=== PATIENT | female | born 1970 | race Caucasian/White ===

== ENCOUNTER 2018-12-28 22:14 | Emergency (ER) | payer MEDICAID ==
[~2018-12-28] VITALS: Ht 139.7 cm; Wt 85.0 kg
[~2018-12-28 22:14] MED LIST: IBUP-1542 PO
[2018-12-28 22:28] VITALS: BP 145/86; PULSE 91; RESP 20; Ht 139.7 cm; Wt 85.0 kg
[2018-12-28] MEDS ORDERED: IBUPROFEN 600 MG TAB PO ONE (23:00)
--- NOTE | 2018-12-28 23:22 | ERD ---
ER Documentation Chief Complaint Chief Complaint right breast pain since last night, green discharge x 1 episode. no fevers. HPI 48-year-old female presenting with right breast pain since yesterday in the midportion of her right breast, with associated minimal yellowish discharge from the nipple. She noticed this in the shower yesterday and today when she tried to express it from the breast. She denies any associated fevers or chills. Her last mammogram was over 10 years ago and was normal. Currently she is denying much pain in her breast. She states that it is a aching pain, 3 out of 10, nonradiating, in the middle right of her chest. No alleviating or exacerbating factors. The pain is constant. ROS All systems reviewed and are negative except as per history of present illness. Allergies Allergies: Coded Allergies: No Known Allergy (Unverified , 12/28/18) PMhx/Soc Medical and Surgical Hx: pt denies Medical Hx, pt denies Surgical Hx Hx Alcohol Use: No Hx Substance Use: No Hx Tobacco Use: No FmHx No history of cancer or any other serious medical problems Physical Exam Vitals Vital Signs Date Temp Pulse Resp B/P (MAP) Pulse Ox O2 O2 Flow FiO2 Time Delivery Rate 12/28/18 98.7 91 20 145/86 100 22:28 (105) Physical Exam Const: No acute distress Neck: No swelling, trachea midline Breast: Bilateral breast implants noted. No palpable masses bilaterally. Left breast with no liquid expressed from the nipple. On the right side, able to express minimal amount of yellowish discharge. No skin changes bilaterally. No axillary lymphadenopathy Resp: Clear to auscultation bilaterally Cardio: Regular rate and rhythm, no murmurs Abd: Soft, non tender, non distended. Skin: No petechiae or rashes Psych: Normal Mood and Affect Results 24 hrs Current Medications Medications Dose Sig/Alvaro Start Time Status Last (Trade) Ordered Route PRN Stop Time Admin Dose Reason Admin Ibuprofen 600 mg ONCE ONCE 12/28/18 DC (Motrin) PO 23:00 12/28/18 23:01 Procedures/MDM Patient is presenting with mild right breast pain with yellowish discharge from the right nipple. She is afebrile and hemodynamically stable. There are no oth er signs of infection on exam. I have a high suspicion for breast malignancy. I have explained this to the patient with the help of a centerless grinder operator. No further work-up can be done in the ER, which I explained to the patient, but she needs to see her primary care doctor as soon as possible to get a referral for mammogram. Patient states that she has an appointment scheduled for a complete physical exam in 2 days and she will discuss this with her doctor. All questions answered. Patient discharged in stable condition. Patient's blood pressure was elevated (>120/80) but appears stable without evidence of hypertension emergency or urgency. The patient was counseled about the risks of hypertension and urged to pursue outpatient monitoring and therapy within a week with their primary care physician. Departure Diagnosis: Primary Impression: Breast pain Additional Impression: Purulent nipple discharge determined by examination Condition: Stable Patient Instructions: Breast Health: Normal Breast Changes Ref[facility]: [facility] Mark se dey hecho un examen mdico de control que le indica que no est en dimitri condicin que requiera tratamiento urgente en el Departamento de Emergencia. Un estudio ms profundo y el tratamiento de faith condicin pueden esperar sin ningn riesgo hasta que usted sea atendida/o en el consultorio de faith mdico o dimitri clnica. Es responsabilidad suya arreglar dimitri agueda para el seguimiento del srinivasa. MANEJO DE CONDICIONES NO URGENTES EN EL FUTURO 1) Si usted tiene un mdico de atencin primaria: Usted debera llamar a faith mdico de atencin primaria antes de venir al departamento de emergencia. Despus de las horas de consultorio, faith doctor o faith asociado/a est disponible por telfono. El mdico o enfermero de randolph en el servicio telefnico puede asesorarle por stas medio para atender el problema, o srinivasa contrario se puede programar dimitri agueda. 2) Si usted no tiene un mdico de atencin primaria: Llame al mdico o clnica de referencia que aparece abajo tyrone las horas de consultorio para hacer dimitri agueda para que le vean. CLINICAS: [facility] [place] [phone] [facility] [phone] [facility] [phone] [facility] [phone] [place] [phone] [phone] Additional Instructions: Es importante que realice un seguimiento con faith mdico de atencin primaria en los prximos quick. Debe ser derivada para dimitri mamografa lo antes posible. JAZZY THOMPSON MD Dec 28, 2018 23:17
== END 2018-12-28 23:30 | disposition home or self-care (01) ==
LOC: E/R 22:14
DX: N64.4 Mastodynia (principal); N64.52 Nipple discharge
CPT/HCPCS: 81025; 93005; Z7502; Z7610